=== PATIENT | male | born 1945 | race Caucasian/White ===

== ENCOUNTER 2016-08-29 07:17 | Emergency (ER) | payer OTHER ==
[2016-08-29] MEDS: Acetaminophen TAB* 325 MG PO ONE ×2 (08:19→08:20)
[2016-08-29] MEDS: Ondansetron ODT TAB* 4 MG PO ONE (08:21)
[2016-08-29 08:28] VITALS: BP 130/64
--- NOTE | 2016-08-29 09:49 | RAD ---
INDICATION: Cough, fever. Flu A positive. COMPARISON: August 12, 2016 TECHNIQUE: Dual energy PA and routine lateral views of the chest were obtained. REPORT: Normal elevated lung volumes and mild prominence of the interstitial markings without change. No alveolar consolidation, focal pulmonary lesion, pleural effusion, pneumothorax. The heart, pulmonary vasculature, and mediastinal contours are unremarkable. IMPRESSION: Stigmata of chronic obstructive pulmonary disease. No evidence for pneumonia.
--- NOTE | 2016-08-29 14:59 | UC ---
Edwin Carranza Claudia, scribed for Shannon Rae DO on 08/29/16 at 0845 . General HPI - HPI Summary HPI Summary: 70 year old male presents to the [facility] with general illness. PT admits to sore throat, productive cough(yellow discharge), nasal discharge, N/V, sinus congestion, SALEEM, fever, myalgia. Pt denies dysuria, ear ache, and diarrhea. Pt had has this cough for 4 months and has been on prednisone, and 1 dosage of antibiotics for Sx. He notes that nothing seems to alleviate his cough and his Sx have only gotten progressively worse. Pt had a nnml CXR 6 weeks ago. PMHx of DM1 is noted. - History of Current Complaint Chief Complaint: UCGeneralIllness Stated Complaint: COUGH SORE THROAT Hx Obtained From: Patient Onset/Duration: Gradual Onset, Still Present Associated Signs & Symptoms: Positive: Cough, Fever, Headache, Nausea, Vomiting , Other - sore throat. Negative: Diarrhea, Dysuria - Allergy/Home Medications Allergies/Adverse Reactions: Allergies Allergy/AdvReac Type Severity Reaction Status Date / Time No Known Allergies Allergy Verified 08/29/16 10:35 PMH/Surg Hx/FS Hx/Imm Hx Previously Healthy: Yes Endocrine History Of: Reports: Diabetes - SINCE AGE 10 YRS, INSULIN DEPENDENT - Surgical History Surgical History: Yes Surgery Procedure, Year, and Place: TONSILLECTOMY-1951 - [place]. RIGHT ANKLE SURGERY- 1998- [facility]. BILATERAL CATARACT SURG WITH IOL IMPLANT- 2 YRS AGO- [facility] [place] - Family History Family History: NO FHX of Malignant Hyperthermia - Social History Occupation: Retired Lives: With Family Alcohol Use: Weekly Alcohol Amount: 3 DRINKS/WEEK Substance Use Type: None Smoking Status (MU): Never Smoked Tobacco Have You Smoked in the Last Year: No Review of Systems Constitutional: Fever Skin: Negative Eyes: Negative ENT: Sore Throat, Nasal Discharge, Other - sinus congestion Respiratory: Cough Cardiovascular: Negative Gastrointestinal: Other - N/V Genitourinary: Frequency Motor: Negative Neurovascular: Negative Musculoskeletal: Myalgia Neurological: Headache Psychological: Negative All Other Systems Reviewed And Are Negative: Yes Physical Exam Triage Information Reviewed: Yes Appearance: No Pain Distress, Well-Nourished, Ill-Appearing - mildly Vital Signs: Initial Vital Signs Temp 101 F 08/29/16 07:30 Pulse 82 08/29/16 07:30 Resp 18 08/29/16 07:30 BP 162/71 08/29/16 07:30 Pulse Ox 95 08/29/16 07:30 Vital Signs Reviewed: Yes Eyes: Positive: Conjunctiva Clear. Negative: Conjunctiva Inflamed ENT: Positive: Hearing grossly normal, Pharyngeal erythema, TMs normal. Negative: Tonsillar swelling, Tonsillar exudate, Trismus, Muffled/hoarse voice Dental Exam: Normal Neck exam: Normal Neck: Positive: Supple, Nontender Respiratory: Positive: Lungs clear, Normal breath sounds, No respiratory distress, No accessory muscle use Cardiovascular: Positive: RRR, No Murmur Abdomen Description: Positive: Soft. Negative: Nontender - Tender at LLQ, Distended, Guarding Bowel Sounds: Positive: Present Musculoskeletal Exam: Normal Neurological Exam: Normal Neurological: Positive: Alert, Muscle Tone Normal Psychological Exam: Normal Psychological: Positive: Age Appropriate Behavior Diagnostics - Radiology CXR Xray Interpretation: Positive (See Comments) - STIGMATA FOR COPD. NO EVIDENCE FOR PNEUMONIA. Radiology Interpretation Completed By: Radiologist Re-Evaluation - Re-Evaluation 1 Re-Evaluation Time: 09:55 Comment: CXR and results of flu were discussed with pt. The pt is agreeable to be transfered to [facility] ED for futher testing and observation. Course/Dx - Differential Dx - Multi-Symptom Differential Diagnoses: Metabolic Abnormality, Urinary Tract Infection, Other - pna, influenza, metabolic abn, strep throat Provider Diagnoses: influenza, ketonuria/glycosuria r/o metabolic abnormality Discharge - Discharge Plan Condition: Stable Disposition: TRANS HIGHER LVL OF CARE FAC The documentation as recorded by the Edwin bates Claudia accurately reflects the service I personally performed and the decisions made by , Shannon Rae DO.
== END 2016-08-29 10:00 | disposition short-term general hospital (02) ==
LOC: UCEAST 07:17
DX: J11.1 Influenza due to unidentified influenza virus with other respiratory manifestations (principal); R82.4 Acetonuria; R81 Glycosuria; E11.9 Type 2 diabetes mellitus without complications; Z79.4 Long term (current) use of insulin; Z98.42 Cataract extraction status, left eye; Z98.41 Cataract extraction status, right eye; Z96.1 Presence of intraocular lens
CPT/HCPCS: 71020; 81002; 87502; 87651; 99213; A9270-GY; G0463

== ENCOUNTER 2016-08-29 10:23 | Observation (INO) | payer MEDICARE, OTHER ==
[2016-08-29] MEDS ORDERED: Albuterol/Ipratropium NEB.SOL* Albuterol 2.5 MG/Ipratropium 0.5 MG 3 ML INH ONE (11:17)
[2016-08-29] MEDS ORDERED: Oseltamivir CAP* 75 MG PO ONE (11:17)
[2016-08-29 11:56] LABS: Hematocrit 43 % (42-52); Hemoglobin 14.2 g/dl (14.0-18.0); Mean Corpuscular HGB Conc 33 g/dl (31-36); Mean Corpuscular Hemoglobin 30 pg (27-31); Mean Corpuscular Volume 89 fL (80-94); Mean Platelet Volume 8 um3 (7.4-10.4); Red Blood Count 4.79 10^6/ul (4.0-5.4); Red Cell Distribution Width 13 % (10.5-15)
[2016-08-29] MEDS: NS 0.9% 1000 ML* 3,000 ML IV ONE (12:07)
[2016-08-29 12:09] LABS: BUN/Creatinine Ratio 13.7 (8-20); Calcium 8.9 mg/dL (8.6-10.3); EGFR African American 93.1 (>60); EGFR Non-African American 72.4 (>60); Globulin 2.7 g/dL (2-4); Potassium 4.3 mmol/L (3.5-5.0); Total Bilirubin 0.8 mg/dL (0.2-1.0); Total Protein 6.7 g/dL (6.4-8.9)
[2016-08-29 12:11] LABS: Troponin I 0.01 ng/mL (<0.04)
[2016-08-29 12:22] LABS: C Reactive Protein 3.74 mg/L (< 5.00)
[2016-08-29] MEDS: Acetaminophen TAB* 325 MG PO ONE ×2 (13:37→14:14)
[2016-08-29] MEDS ORDERED: Ondansetron INJ* 2 MG/ML VIAL ONE (13:43)
[2016-08-29] MEDS ORDERED: Acetaminophen SUPP* 650 MG SUPP ONE (13:43)
--- NOTE | 2016-08-29 13:48 | ED ---
Pierre Carranza Matthew, scribed for Edgardo Singh MD on 08/29/16 at 1121 . Influenza-Like Illness - HPI Summary HPI Summary: A 70 y/o male presents to the ED with flu like symptoms since 2 days ago. Associated symptoms include fever, chills, sinus congestion, diffuse body aches , nausea, vomiting, sore throat - since months ago; secondary to coughing, post- nasal drip, and a productive cough for the past 4 months that's progressively worsening and described as yellow in appearance. The patient denies pedal edema , diarrhea, wheezing, SOB, and decreased in weight. The patient took Tylenol and Zofran BLENDER / COOK at [facility]. Patient states that his diabetes is not well controlled right now. He was prescribed prednisone and 1 dosage of Abx, which did not alleviate cough. The patient received his flu shot this year. No PMHx of asthma , HTN, CHF, or HLD. Hx of emphysema. - History of Current Complaint Chief Complaint: EDFluSymptoms Time Seen by Provider: 08/29/16 10:57 Hx Obtained From: Patient Onset/Duration: Gradual Onset, Lasting Days, Still Present Severity: Moderate Associated Signs & Symptoms: F/C - 100, Cough, Sore Throat, Nasal Congestion, Vomiting Related Hx: Possible Flu/Infectious Exposure - Risk Factors Influenza Risk Factors: Age 65 y/o or Older - Allergy/Home Medications Allergies/Adverse Reactions: Allergies Allergy/AdvReac Type Severity Reaction Status Date / Time No Known Allergies Allergy Verified 08/29/16 10:35 PMH/Surg Hx/FS Hx/Imm Hx Endocrine/Hematology History: Reports: Hx Diabetes - SINCE AGE 10 YRS, INSULIN DEPENDENT GI History: Reports: Other GI Disorders - UMBILICAL HERNIA Musculoskeletal History: Reports: Hx Tendonitis - SHOULDER Sensory History: Reports: Hx Cataracts - BILATERAL- HAD LENS IMPLANTS 2013, Hx Contacts or Glasses - GLASSES Denies: Hx Hearing Aid Opthamlomology History: Reports: Hx Cataracts - BILATERAL- HAD LENS IMPLANTS 2013, Hx Contacts or Glasses - GLASSES - Cancer History Hx Chemotherapy: No - Surgical History Surgery Procedure, Year, and Place: TONSILLECTOMY-1951 - [place]. RIGHT ANKLE SURGERY- 1998- [facility]. BILATERAL CATARACT [place]G WITH [place] IMPLANT[place] [facility] [place] Anesthesia Reactions: No Infectious Disease History: No Infectious Disease History: Reports: Hx Tuberculosis Denies: Traveled Outside the [place] in Last 30 Days - Family History Family History: NO FHX of Malignant Hyperthermia. No FHx of Anesthesia reaction - Social History Alcohol Use: Weekly Alcohol Amount: 3 DRINKS/WEEK Substance Use Type: Reports: None Smoking Status (MU): Never Smoked Tobacco Have You Smoked in the Last Year: No Review of Systems Positive: Fever, Chills Eyes: Negative ENT: Other - Post-nasal drip Positive: Sore Throat, Other - sinus congestion . Negative: Ear Ache Cardiovascular: Negative Negative: Chest Pain Positive: Cough. Negative: Shortness Of Breath Positive: Vomiting, Nausea. Negative: Abdominal Pain, Diarrhea Genitourinary: Negative Positive: Myalgia - Diffuse body aches . Negative: Edema - pedal edema Skin: Negative Neurological: Negative Psychological: Normal All Other Systems Reviewed And Are Negative: Yes Physical Exam - Summary Physical Exam Summary: The patient is ill-appearing. The skin is warm and dry and skin color reflects adequate perfusion. HEENT: The head is normocephalic and atraumatic. The pupils are equal and reactive. The conjunctivae are clear and without drainage. Nares are patent and without drainage. Mouth reveals dry mucous membranes with pharyngeal erythema. The external ears are intact. Neck is supple with full range of motion and non-tender. There are no carotid bruits. There is no neck vein distension. Respiratory: Chest is non-tender. The patient has diffuse wheezing and rhonchi Cardiovascular: Heart is regular rate and rhythm. There is no murmur or rub auscultated. There is no peripheral edema and pulses are symmetrical and equal. Abdomen: The abdomen is soft and non-tender. There are normal bowel sounds heard in all four quadrants and there is no organomegaly palpated. Musculoskeletal: There is no back pain noted. Extremities are non-tender with full range of motion. There is good capillary refill. There is no peripheral edema or calf tenderness elicited. Neurological: Patient is alert and oriented to person, place and time. The patient has symmetrical motor strength in all four extremities. Cranial nerves are grossly intact. Deep tendon reflexes are symmetrical and equal in all four extremities. Psychiatric: The patient has an appropriate affect and does not exhibit any anxiety or depression. The patient is able to sit-up on his own. Triage Information Reviewed: Yes Vital Signs On Initial Exam: Initial Vitals Temp Pulse Resp BP Pulse Ox 100 F 81 14 160/84 98 08/29/16 10:29 08/29/16 10:29 08/29/16 10:29 08/29/16 10:29 08/29/16 10:29 Vital Signs Reviewed: Yes Diagnostics - Vital Signs Vital Signs Temp Pulse Resp BP Pulse Ox 08/29/16 10:29 100 F 81 14 160/84 98 - Laboratory Lab Results: Lab Results 08/29/16 08/29/16 08/29/16 Range/Units 11:40 11:40 11:40 WBC 8.0 (3.5-10.8) 10^3/ul RBC 4.79 (4.0-5.4) 10^6/ul Hgb 14.2 (14.0-18.0) g/dl Hct 43 (42-52) % MCV 89 (80-94) fL MCH 30 (27-31) pg MCHC 33 (31-36) g/dl RDW 13 (10.5-15) % Plt Count 157 (150-450) 10^3/ul MPV 8 (7.4-10.4) um3 Neut % (Auto) 88.1 H (38-83) % Lymph % (Auto) 4.2 L (25-47) % Lowndes % (Auto) 6.0 (1-9) % Eos % (Auto) 0 (0-6) % Baso % (Auto) 1.7 (0-2) % Absolute Neuts (auto) 7.1 (1.5-7.7) 10^3/ul Absolute Lymphs (auto) 0.3 L (1.0-4.8) 10^3/ul Absolute Monos (auto) 0.5 (0-0.8) 10^3/ul Absolute Eos (auto) 0 (0-0.6) 10^3/ul Absolute Basos (auto) 0.1 (0-0.2) 10^3/ul Absolute Nucleated RBC 0 10^3/ul Nucleated RBC % 0.1 INR (Anticoag Therapy) 0.96 (0.89-1.11) APTT 30.2 (26.0-36.3) seconds Sodium 132 L (133-145) mmol/L Potassium 4.3 (3.5-5.0) mmol/L Chloride 96 L (101-111) mmol/L Carbon Dioxide 30 (22-32) mmol/L Anion Gap 6 (2-11) mmol/L BUN 14 (6-24) mg/dL Creatinine 1.02 (0.67-1.17) mg/dL Est GFR ( Amer) 93.1 (>60) Est GFR (Non-Af Amer) 72.4 (>60) BUN/Creatinine Ratio 13.7 (8-20) Glucose 222 H (70-100) mg/dL Lactic Acid (0.5-2.0) mmol/L Calcium 8.9 (8.6-10.3) mg/dL Total Bilirubin 0.80 (0.2-1.0) mg/dL AST 21 (13-39) U/L ALT 24 (7-52) U/L Alkaline Phosphatase 87 (34-104) U/L Troponin I 0.01 (<0.04) ng/mL C-Reactive Protein 3.74 (< 5.00) mg/L Total Protein 6.7 (6.4-8.9) g/dL Albumin 4.0 (3.2-5.2) g/dL Globulin 2.7 (2-4) g/dL Albumin/Globulin Ratio 1.5 (1-3) 08/29/16 Range/Units 11:40 WBC (3.5-10.8) 10^3/ul RBC (4.0-5.4) 10^6/ul Hgb (14.0-18.0) g/dl Hct (42-52) % MCV (80-94) fL MCH (27-31) pg MCHC (31-36) g/dl RDW (10.5-15) % Plt Count (150-450) 10^3/ul MPV (7.4-10.4) um3 Neut % (Auto) (38-83) % Lymph % (Auto) (25-47) % Lowndes % (Auto) (1-9) % Eos % (Auto) (0-6) % Baso % (Auto) (0-2) % Absolute Neuts (auto) (1.5-7.7) 10^3/ul Absolute Lymphs (auto) (1.0-4.8) 10^3/ul Absolute Monos (auto) (0-0.8) 10^3/ul Absolute Eos (auto) (0-0.6) 10^3/ul Absolute Basos (auto) (0-0.2) 10^3/ul Absolute Nucleated RBC 10^3/ul Nucleated RBC % INR (Anticoag Therapy) (0.89-1.11) APTT (26.0-36.3) seconds Sodium (133-145) mmol/L Potassium (3.5-5.0) mmol/L Chloride (101-111) mmol/L Carbon Dioxide (22-32) mmol/L Anion Gap (2-11) mmol/L BUN (6-24) mg/dL Creatinine (0.67-1.17) mg/dL Est GFR ( Amer) (>60) Est GFR (Non-Af Amer) (>60) BUN/Creatinine Ratio (8-20) Glucose (70-100) mg/dL Lactic Acid 1.3 (0.5-2.0) mmol/L Calcium (8.6-10.3) mg/dL Total Bilirubin (0.2-1.0) mg/dL AST (13-39) U/L ALT (7-52) U/L Alkaline Phosphatase (34-104) U/L Troponin I (<0.04) ng/mL C-Reactive Protein (< 5.00) mg/L Total Protein (6.4-8.9) g/dL Albumin (3.2-5.2) g/dL Globulin (2-4) g/dL Albumin/Globulin Ratio (1-3) Result Diagrams: 08/29/16 11:40 08/29/16 11:40 Lab Statement: Any lab studies that have been ordered have been reviewed, and results considered in the medical decision making process. Re-Evaluation - Re-Evaluation First Eval Re-Evaluation Time: 13:14 Change: Unchanged Comment: O2 Sat 88% and the patient is not feeling better after treatment. The hospitalist will be consulted for possible admission. Flu Symptom Course/Dx - Course Assessment/Plan: A 70 y/o male presents to the ED from [facility] with flu like symptoms since 2 days ago. Associated symptoms include fever, chills, sinus congestion, diffuse body aches, nausea, vomiting, sore throat - since months ago ; secondary to coughing, post-nasal drip, and a productive cough for the past 4 months that's progressively worsening and described as yellow in appearance. Labs were reviewed. In the ED course, the patient was given 3L of IV fluids, Tamiflu, Tylenol, and Duoneb. Upon re-evaluation the patient did not improve. Discussed the case with Dr. Egan who will admit the patient into his services. - Diagnoses Differential Diagnosis/HQI/PQRI: Positive: Influenza, Pneumonia, Upper Respiratory Infection, Other - dehydration, hyperglycemia, Provider Diagnoses: Influenza - Physician Notifications Discussed Care Of Patient With: Dr. Egan (Hospitalist) at 13:15 -- Notified of patient's history and will evaluate the patient for possible admission. Discharge - Discharge Plan Condition: Stable Disposition: ADMITTED TO [facility] Referrals: Akin Goff MD [Primary Care Provider] - The documentation as recorded by the Pierre bates Matthew accurately reflects the service I personally performed and the decisions made by , Edgardo Singh MD.
[2016-08-29] MEDS ORDERED: NS 0.9% 1000 ML* 1,000 ML IV ONE (13:54)
[2016-08-29] MEDS ORDERED: PROCHLORPERAZINE INJ 5 MG/ML 2 ML VIAL IV PRN (13:54)
[2016-08-29] MEDS ORDERED: Acetaminophen SUPP* 650 MG SUPP PR PRN (13:54)
[2016-08-29] MEDS ORDERED: Dextrose 50% Syringe 50 ML* 25 GM/50 ML SYRINGE IV PUSH PRN (13:54)
[2016-08-29] MEDS ORDERED: Acetaminophen TAB* 325 MG PO PRN (13:54)
[2016-08-29] MEDS ORDERED: NS 0.9% 1000 ML* 1,000 ML IV SCH (14:00)
[2016-08-29] MEDS: Ondansetron INJ* 2 MG/ML VIAL IV PRN (14:12)
[2016-08-29] MEDS ORDERED: Pseudoephedrine TAB* 30 MG PO ONE (17:18)
[2016-08-29] MEDS: Insulin LISPRO* 1 UNITS UNIT SUBCUT SCH (17:37)
--- NOTE | 2016-08-29 20:39 | HP ---
HISTORY AND PHYSICAL: DATE OF ADMISSION: 08/29/16 PRIMARY CARE PROVIDER: Dr. Goff. ATTENDING PHYSICIAN WHILE IN THE HOSPITAL: Dr. Ab Egan * (report dictated by Pepe Arteaga NP). CHIEF COMPLAINT: 1. Myalgias. 2. Fever. 3. Cough. HISTORY OF PRESENT ILLNESS: Mr. Britt is a 70-year-old male patient that comes into the ER today stating that over the last 2 to 3 days, he has had progressive worsening arthralgias, chills, myalgias. He has been feeling nauseous off and on. He has had a sore throat and rhinorrhea. The sore throat and rhinorrhea has been going on for almost a week now. He says he was not feeling better. He was concerned because he thought he was shaking, having chills this morning, so he came in to the [facility] and he was sent here because there was a concern for a flu. He says that he really has not been able to keep much down, because he feels so nauseated. He denies having any chest pain. He said it does hurt when he does cough, but he denies having any shortness of breath or any orthopnea or any nocturnal dyspnea and he does have chest pain with coughing. He was evaluated in the ER, there was concern because it was found that he was flu positive. In addition to this, it was noted that he was having trouble keeping medications down because of the nausea. Because of this, the hospitalist service was asked to evaluate for admission. PAST MEDICAL HISTORY: Significant for: 1. Diabetes. 2. Hypertension. PAST SURGICAL HISTORY: He has had: 1. Cataract extraction. 2. Ankle surgery. MEDICATIONS: The home meds include according to his recall: 1. Humalog sliding scale 110 units subcu t.i.d. before meals. 2. Cozaar 25 mg at bedtime. 3. Lantus 15 units at bedtime. ALLERGIES TO MEDICATIONS: Include no known drug allergies. FAMILY HISTORY: His mother had cancer. His father's history reviewed and noncontributory. SOCIAL HISTORY: He does not smoke, does not drink. He is a retired teacher. Surrogate decision maker is his . REVIEW OF SYSTEMS: There is a documented fever here. He does admit to having chills. There is no significant weight change. There was no double vision. There is no ear discharge. There was rhinorrhea. There was a sore throat. There is no dysuria, no frequency. No loss of consciousness. No pruritus and no skin ulcerations. Review of 14 systems completed, all others negative. PHYSICAL EXAMINATION GENERAL: At this time, Mr. Britt is a 70-year-old male patient. He does not appear to be in any acute distress. He is awake, he is alert, he is oriented x3. VITAL SIGNS: Blood pressure 160/84, last blood pressure was 140/80; his pulse was 77; respirations 18, O2 sat 100%; temperature was 100. HEENT: Head: Atraumatic, normocephalic. Eyes: EOMs intact. Sclerae anicteric. Throat: Oral mucosa appears to be dry. No oropharyngeal erythema. NECK: Supple. LUNGS: Clear to auscultation. He did have some rhonchi in the upper lobe. He had equal diaphragmatic expansion. HEART: Sounds S1, S2. Regular rate and rhythm. No murmurs, rubs, or gallops. ABDOMEN: Soft, flat, nontender. Bowel sounds are present. EXTREMITIES: Pulses were 2+ throughout. He is able to move all 4 extremities with 5/5 strength. NEUROLOGIC: He is awake, he is alert, and is oriented x3. Tongue midline. Network Technical Analyst were equal. He had no gross focal deficits. SKIN: His skin was grossly intact. DIAGNOSTIC STUDIES/LAB DATA: His labs today revealed WBC of 8.0, RBC of 4.79, hemoglobin of 14.2, hematocrit of 43, platelet count of 157. The INR was 0.96, PTT was 30.2. Sodium 132, potassium 4.3, chloride of 96, bicarb 30, BUN 14, creatinine of 1.02, glucose 222, lactate 1.3, calcium 8.9. Total bili 0.8, AST 21, ALT 24, alk phos 87. Troponin 0.01. Albumin of 4. He had a chest x-ray obtained today which revealed stigmata of COPD. No evidence for pneumonia. Old medical records were reviewed. ASSESSMENT AND PLAN: Mr. Britt is a 70-year-old male patient coming in to the ER today with complaints of myalgias, arthralgias in addition to this fever , nausea, vomiting, and sore throat. On evaluation, he was found to have influenza A at [facility], hospitalist service was asked to evaluate for admission. He will be admitted under observation status for: 1. Influenza A. At this point, we will go ahead and put him on Tamiflu. I will go ahead and hydrate him, give him some Zofran and in addition to this, Tylenol for the nausea and the fever respectively and I will continue with supportive care and will follow. 2. Hypertension. Blood pressure is in 140s. I am going to hold his Cozaar in the setting of the acute illness because of the risk of the acute renal injury. We will just continue to monitor. If we need to, we can put him on something like Norvasc. 3. Diabetes. Put him on lispro sliding scale and his Lantus. 4. DVT prophylaxis. I will place him on heparin subcu. 5. Fluids, electrolytes, and nutrition: We will go ahead and hydrate him and and put him on a clear liquid diet, but the goal is a consistent carb diet. 6. Code status: Full code. TIME SPENT: On the admission 60 minutes, greater than half the time was spent face- to-face with the patient obtaining my history and physical, and the other half time was spent going over the plan of care with patient and implementing the plan of care. I did discuss the plan of care with my attending, Dr. Egan; he is in agreement. PEPE ARTEAGA NP CC: Dr. Goff * [id number]/CPS #: [id number] [place]
[2016-08-29] MEDS: Insulin GLARGINE(*) 1 UNITS UNIT SUBCUT SCH (20:48)
[2016-08-29] MEDS: Oseltamivir CAP* 75 MG PO SCH (20:48)
[2016-08-29] MEDS: Heparin VIAL(*) 5000 UNITS/ML VIAL (FIVE THOUSAND) SUBCUT SCH (23:16)
[2016-08-30 03:16] LABS: Urine Bilirubin Negative (Negative); Urine Glucose 2+(150 mg/dL) (Negative); Urine Nitrite Negative (Negative)
[2016-08-30] MEDS: Heparin VIAL(*) 5000 UNITS/ML VIAL (FIVE THOUSAND) SUBCUT SCH ×3 (05:47→21:40)
[2016-08-30 06:27] LABS: Hematocrit 39 % (42-52); Hemoglobin 12.8 g/dl (14.0-18.0); Mean Corpuscular HGB Conc 33 g/dl (31-36); Mean Corpuscular Hemoglobin 30 pg (27-31); Mean Corpuscular Volume 89 fL (80-94); Mean Platelet Volume 8 um3 (7.4-10.4); Red Cell Distribution Width 13 % (10.5-15); White Blood Count 8.2 10^3/ul (3.5-10.8)
[2016-08-30 06:41] LABS: Calcium 8.1 mg/dL (8.6-10.3); EGFR African American 103.6 (>60); EGFR Non-African American 80.6 (>60)
[2016-08-30] MEDS: Oseltamivir CAP* 75 MG PO SCH ×2 (08:52→20:43)
[2016-08-30] MEDS: Insulin LISPRO* 1 UNITS UNIT SUBCUT SCH ×4 (08:52→18:21)
--- NOTE | 2016-08-30 11:26 | PN ---
Subjective Date of Service: 08/30/16 Interval History: Pt is feeling lousy. He continues to have moist cough. He was able to keep down jello this AM. Objective Active Medications: Acetaminophen (Tylenol Supp*) 650 mg WI Q6H PRN PRN Reason: FEVER/PAIN Last Admin: 08/29/16 14:12 Dose: 650 mg Acetaminophen (Tylenol Tab*) 650 mg PO Q4H PRN PRN Reason: FEVER/PAIN Last Admin: 08/29/16 20:48 Dose: 650 mg Dextrose (D50w Syringe 50 Ml*) 12.5 gm IV PUSH .FOR FS < 60 - SS PRN PRN Reason: FS < 60 Heparin Sodium (Porcine) (Heparin Vial(*)) 5,000 units SUBCUT Q8HR [facility] Last Admin: 08/30/16 05:47 Dose: 5,000 units Sodium Chloride (Ns 0.9% 1000 Ml*) 1,000 mls @ 125 mls/hr IV PER RATE [facility] Last Admin: 08/29/16 17:35 Dose: 125 mls/hr Insulin Glargine (Lantus(*)) 15 units SUBCUT BEDTIME [facility] Last Admin: 08/29/16 20:48 Dose: 15 units Insulin Human Lispro (Humalog*) 0 units SUBCUT AC [facility] PRN Reason: Protocol Last Admin: 08/30/16 08:52 Dose: 4 units Ondansetron HCl (Zofran Inj*) 4 mg IV Q6H PRN PRN Reason: NAUSEA Last Admin: 08/29/16 14:12 Dose: 4 mg Oseltamivir Phosphate (Tamiflu Cap*) 75 mg PO BID [facility] Stop: 09/03/16 09:01 Last Admin: 08/30/16 08:52 Dose: 75 mg Prochlorperazine Edisylate (Compazine Inj*) 5 mg IV Q6H PRN PRN Reason: NAUSEA/VOMITING Last Admin: 08/29/16 17:30 Dose: 5 mg Vital Signs 08/29/16 08/29/16 08/29/16 14:00 14:30 15:00 Temperature Pulse Rate 89 84 89 Respiratory Rate Blood Pressure 139/60 136/60 130/58 (mmHg) O2 Sat by Pulse 88 99 97 Oximetry 02/05/17 02/05/17 02/05/17 15:30 15:48 16:53 Temperature 103 F Pulse Rate 87 83 91 Respiratory 20 16 Rate Blood Pressure 124/65 124/65 126/41 (mmHg) O2 Sat by Pulse 96 97 Oximetry 08/29/16 08/29/16 08/29/16 19:49 19:58 20:00 Temperature 102.2 F 100.4 F Pulse Rate 88 91 Respiratory 20 16 16 Rate Blood Pressure 120/49 126/41 (mmHg) O2 Sat by Pulse 99 97 Oximetry 08/29/16 08/29/16 08/29/16 20:21 20:30 23:19 Temperature 102.2 F 100.7 F Pulse Rate Respiratory 14 Rate Blood Pressure (mmHg) O2 Sat by Pulse Oximetry 08/30/16 08/30/16 08/30/16 00:38 02:24 03:16 Temperature 99.3 F 99.4 F Pulse Rate 88 74 Respiratory 16 14 Rate Blood Pressure 145/64 132/66 (mmHg) O2 Sat by Pulse 97 97 Oximetry 08/30/16 08/30/16 08/30/16 07:41 08:00 08:53 Temperature 99.1 F Pulse Rate 70 Respiratory Rate Blood Pressure 116/40 (mmHg) O2 Sat by Pulse 93 93 91 Oximetry Oxygen Devices in Use Now: Nasal Cannula - 91%-3L Appearance: Middle aged male sitting up in bed, NAD Eyes: No Scleral Icterus Ears/Nose/Mouth/Throat: Mucous Membranes Moist Respiratory: Symmetrical Chest Expansion and Respiratory Effort, - - + deep breath leads to moist cough, coarse breath sounds throughout Cardiovascular: NL Sounds; No Murmurs; No JVD, RRR, No Edema Abdominal: NL Sounds; No Tenderness; No Distention Extremities: No Clubbing, Cyanosis Skin: No Rash or Ulcers, No Nodules or Sclerosis Neurological: Alert and Oriented x 3 Result Diagrams: 08/30/16 05:51 08/30/16 05:51 Additional Lab and Data: Lab Results 08/29/16 08/29/16 08/29/16 Range/Units 11:40 11:40 11:40 WBC 8.0 (3.5-10.8) 10^3/ul RBC 4.79 (4.0-5.4) 10^6/ul Hgb 14.2 (14.0-18.0) g/dl Hct 43 (42-52) % MCV 89 (80-94) fL MCH 30 (27-31) pg MCHC 33 (31-36) g/dl RDW 13 (10.5-15) % Plt Count 157 (150-450) 10^3/ul MPV 8 (7.4-10.4) um3 Neut % (Auto) 88.1 H (38-83) % Lymph % (Auto) 4.2 L (25-47) % Haines % (Auto) 6.0 (1-9) % Eos % (Auto) 0 (0-6) % Baso % (Auto) 1.7 (0-2) % Absolute Neuts (auto) 7.1 (1.5-7.7) 10^3/ul Absolute Lymphs (auto) 0.3 L (1.0-4.8) 10^3/ul Absolute Monos (auto) 0.5 (0-0.8) 10^3/ul Absolute Eos (auto) 0 (0-0.6) 10^3/ul Absolute Basos (auto) 0.1 (0-0.2) 10^3/ul Absolute Nucleated RBC 0 10^3/ul Nucleated RBC % 0.1 INR (Anticoag Therapy) 0.96 (0.89-1.11) APTT 30.2 (26.0-36.3) seconds Sodium 132 L (133-145) mmol/L Potassium 4.3 (3.5-5.0) mmol/L Chloride 96 L (101-111) mmol/L Carbon Dioxide 30 (22-32) mmol/L Anion Gap 6 (2-11) mmol/L BUN 14 (6-24) mg/dL Creatinine 1.02 (0.67-1.17) mg/dL Est GFR ( Amer) 93.1 (>60) Est GFR (Non-Af Amer) 72.4 (>60) BUN/Creatinine Ratio 13.7 (8-20) Glucose 222 H (70-100) mg/dL Lactic Acid (0.5-2.0) mmol/L Calcium 8.9 (8.6-10.3) mg/dL Total Bilirubin 0.80 (0.2-1.0) mg/dL AST 21 (13-39) U/L ALT 24 (7-52) U/L Alkaline Phosphatase 87 (34-104) U/L Troponin I 0.01 (<0.04) ng/mL C-Reactive Protein 3.74 (< 5.00) mg/L Total Protein 6.7 (6.4-8.9) g/dL Albumin 4.0 (3.2-5.2) g/dL Globulin 2.7 (2-4) g/dL Albumin/Globulin Ratio 1.5 (1-3) 08/29/16 Range/Units 11:40 WBC (3.5-10.8) 10^3/ul RBC (4.0-5.4) 10^6/ul Hgb (14.0-18.0) g/dl Hct (42-52) % MCV (80-94) fL MCH (27-31) pg MCHC (31-36) g/dl RDW (10.5-15) % Plt Count (150-450) 10^3/ul MPV (7.4-10.4) um3 Neut % (Auto) (38-83) % Lymph % (Auto) (25-47) % Haines % (Auto) (1-9) % Eos % (Auto) (0-6) % Baso % (Auto) (0-2) % Absolute Neuts (auto) (1.5-7.7) 10^3/ul Absolute Lymphs (auto) (1.0-4.8) 10^3/ul Absolute Monos (auto) (0-0.8) 10^3/ul Absolute Eos (auto) (0-0.6) 10^3/ul Absolute Basos (auto) (0-0.2) 10^3/ul Absolute Nucleated RBC 10^3/ul Nucleated RBC % INR (Anticoag Therapy) (0.89-1.11) APTT (26.0-36.3) seconds Sodium (133-145) mmol/L Potassium (3.5-5.0) mmol/L Chloride (101-111) mmol/L Carbon Dioxide (22-32) mmol/L Anion Gap (2-11) mmol/L BUN (6-24) mg/dL Creatinine (0.67-1.17) mg/dL Est GFR ( Amer) (>60) Est GFR (Non-Af Amer) (>60) BUN/Creatinine Ratio (8-20) Glucose (70-100) mg/dL Lactic Acid 1.3 (0.5-2.0) mmol/L Calcium (8.6-10.3) mg/dL Total Bilirubin (0.2-1.0) mg/dL AST (13-39) U/L ALT (7-52) U/L Alkaline Phosphatase (34-104) U/L Troponin I (<0.04) ng/mL C-Reactive Protein (< 5.00) mg/L Total Protein (6.4-8.9) g/dL Albumin (3.2-5.2) g/dL Globulin (2-4) g/dL Albumin/Globulin Ratio (1-3) Assess/Plan/Problems-Billing Mr Britt is a 70 yo M with a h/o type I DM and hypothyroidism who presented to the ER with c/o myalgias, fever, cough and vomiting and was found to be positive for influenza A. - Patient Problems (1) Influenza A Current Visit: Yes Status: Acute Code(s): J10.1 - FLU DUE TO OTH IDENT INFLUENZA VIRUS W OTH RESP MANIFEST SNOMED Code(s): 383205548 Comment: Continue tamiflu. Currently he is on supplemental O2. Will recheck his sats. If stable off O2 will plan on discharging him home to finish recovering from the flu but if he is still requiring supplemental O2 will keep him hospitalized overnight again. (2) Nausea & vomiting Current Visit: Yes Status: Acute Code(s): R11.2 - NAUSEA WITH VOMITING, UNSPECIFIED SNOMED Code(s): 58251928 Comment: Likely secondary to the flu. He has managed to keep down some jello and water today. If he goes home today will plan on sending him home with prakash SHAFER. (3) Type I diabetes mellitus Current Visit: Yes Status: Acute Comment: Sugars have been moderately elevated on his home regimen. Will add A1c to labs drawn this AM. If his A1c is elevated will adjust his medication regimen-if under good control will continue the same regimen and it is likely that the elevation is secondary to his acute illness. (4) Hypothyroidism Current Visit: Yes Status: Acute Code(s): E03.9 - HYPOTHYROIDISM, UNSPECIFIED SNOMED Code(s): 80108782 Comment: Continue current dose of synthroid. He follows with Dr. Melendez. (5) DVT prophylaxis Current Visit: Yes Status: Acute Code(s): ZOL5405 - SNOMED Code(s): 844744744 Comment: SQ heparin (6) Full code status Current Visit: Yes Status: Acute Code(s): Z78.9 - OTHER SPECIFIED HEALTH STATUS SNOMED Code(s): 809785316
[2016-08-30] MEDS: Ondansetron INJ* 2 MG/ML VIAL IV PRN (19:49)
[2016-08-30] MEDS: Insulin GLARGINE(*) 1 UNITS UNIT SUBCUT SCH (20:44)
[2016-08-30] MEDS: guaiFENesin ER TAB 600 MG PO SCH (21:40)
[2016-08-31] MEDS: Heparin VIAL(*) 5000 UNITS/ML VIAL (FIVE THOUSAND) SUBCUT SCH (05:50)
[2016-08-31 06:18] VITALS: BP 107/47
[2016-08-31] MEDS: Oseltamivir CAP* 75 MG PO SCH (08:35)
[2016-08-31] MEDS: Insulin LISPRO* 1 UNITS UNIT SUBCUT SCH (08:35)
[2016-08-31] MEDS: guaiFENesin ER TAB 600 MG PO SCH (08:40)
--- NOTE | 2016-08-31 10:03 | PN ---
Subjective Date of Service: 08/31/16 Interval History: Pt is feeling better today than yesterday. He still is coughing though this has been a chronic issue for the last several months. He is anxious to go home. Objective Active Medications: Acetaminophen (Tylenol Supp*) 650 mg ID Q6H PRN PRN Reason: FEVER/PAIN Last Admin: 08/29/16 14:12 Dose: 650 mg Acetaminophen (Tylenol Tab*) 650 mg PO Q4H PRN PRN Reason: FEVER/PAIN Last Admin: 08/29/16 20:48 Dose: 650 mg Dextrose (D50w Syringe 50 Ml*) 12.5 gm IV PUSH .FOR FS < 60 - SS PRN PRN Reason: FS < 60 Guaifenesin (Mucinex*) 1,200 mg PO BID [facility] Last Admin: 08/31/16 08:40 Dose: 1,200 mg Heparin Sodium (Porcine) (Heparin Vial(*)) 5,000 units SUBCUT Q8HR [facility] Last Admin: 08/31/16 05:50 Dose: 5,000 units Sodium Chloride (Ns 0.9% 1000 Ml*) 1,000 mls @ 125 mls/hr IV PER RATE [facility] Last Admin: 08/29/16 17:35 Dose: 125 mls/hr Insulin Glargine (Lantus(*)) 15 units SUBCUT BEDTIME [facility] Last Admin: 08/30/16 20:44 Dose: 15 units Insulin Human Lispro (Humalog*) 0 units SUBCUT AC [facility] PRN Reason: Protocol Last Admin: 08/31/16 08:35 Dose: 2 units Ondansetron HCl (Zofran Inj*) 4 mg IV Q6H PRN PRN Reason: NAUSEA Last Admin: 08/30/16 19:49 Dose: 4 mg Oseltamivir Phosphate (Tamiflu Cap*) 75 mg PO BID [facility] Stop: 09/03/16 09:01 Last Admin: 08/31/16 08:35 Dose: 75 mg Prochlorperazine Edisylate (Compazine Inj*) 5 mg IV Q6H PRN PRN Reason: NAUSEA/VOMITING Last Admin: 08/29/16 17:30 Dose: 5 mg Vital Signs 08/30/16 08/30/16 08/30/16 16:42 17:31 18:23 Temperature 99.9 F Pulse Rate 65 Respiratory 20 Rate Blood Pressure 148/62 (mmHg) O2 Sat by Pulse 98 96 96 Oximetry 08/30/16 08/30/16 08/30/16 19:59 20:00 22:16 Temperature 98.0 F Pulse Rate 64 68 Respiratory 20 18 Rate Blood Pressure 130/57 (mmHg) O2 Sat by Pulse 96 93 93 Oximetry 08/31/16 08/31/16 08/31/16 00:40 02:16 05:05 Temperature 99.8 F 98.6 F Pulse Rate 71 62 Respiratory 16 18 Rate Blood Pressure 144/49 107/47 (mmHg) O2 Sat by Pulse 93 89 97 Oximetry 08/31/16 05:55 Temperature Pulse Rate 67 Respiratory Rate Blood Pressure (mmHg) O2 Sat by Pulse 97 Oximetry Oxygen Devices in Use Now: None - 97% Appearance: Middle aged male sitting up in bed, NAD Eyes: No Scleral Icterus Ears/Nose/Mouth/Throat: Mucous Membranes Moist Respiratory: Symmetrical Chest Expansion and Respiratory Effort, Clear to Auscultation - mildly coarse breath sounds L base Cardiovascular: NL Sounds; No Murmurs; No JVD, RRR, No Edema Abdominal: NL Sounds; No Tenderness; No Distention Extremities: No Clubbing, Cyanosis Skin: No Rash or Ulcers, No Nodules or Sclerosis Neurological: Alert and Oriented x 3 Result Diagrams: 08/30/16 05:51 08/30/16 05:51 Additional Lab and Data: Lab Results 08/29/16 08/29/16 08/29/16 Range/Units 11:40 11:40 11:40 WBC 8.0 (3.5-10.8) 10^3/ul RBC 4.79 (4.0-5.4) 10^6/ul Hgb 14.2 (14.0-18.0) g/dl Hct 43 (42-52) % MCV 89 (80-94) fL MCH 30 (27-31) pg MCHC 33 (31-36) g/dl RDW 13 (10.5-15) % Plt Count 157 (150-450) 10^3/ul MPV 8 (7.4-10.4) um3 Neut % (Auto) 88.1 H (38-83) % Lymph % (Auto) 4.2 L (25-47) % Todd % (Auto) 6.0 (1-9) % Eos % (Auto) 0 (0-6) % Baso % (Auto) 1.7 (0-2) % Absolute Neuts (auto) 7.1 (1.5-7.7) 10^3/ul Absolute Lymphs (auto) 0.3 L (1.0-4.8) 10^3/ul Absolute Monos (auto) 0.5 (0-0.8) 10^3/ul Absolute Eos (auto) 0 (0-0.6) 10^3/ul Absolute Basos (auto) 0.1 (0-0.2) 10^3/ul Absolute Nucleated RBC 0 10^3/ul Nucleated RBC % 0.1 INR (Anticoag Therapy) 0.96 (0.89-1.11) APTT 30.2 (26.0-36.3) seconds Sodium 132 L (133-145) mmol/L Potassium 4.3 (3.5-5.0) mmol/L Chloride 96 L (101-111) mmol/L Carbon Dioxide 30 (22-32) mmol/L Anion Gap 6 (2-11) mmol/L BUN 14 (6-24) mg/dL Creatinine 1.02 (0.67-1.17) mg/dL Est GFR ( Amer) 93.1 (>60) Est GFR (Non-Af Amer) 72.4 (>60) BUN/Creatinine Ratio 13.7 (8-20) Glucose 222 H (70-100) mg/dL Lactic Acid (0.5-2.0) mmol/L Calcium 8.9 (8.6-10.3) mg/dL Total Bilirubin 0.80 (0.2-1.0) mg/dL AST 21 (13-39) U/L ALT 24 (7-52) U/L Alkaline Phosphatase 87 (34-104) U/L Troponin I 0.01 (<0.04) ng/mL C-Reactive Protein 3.74 (< 5.00) mg/L Total Protein 6.7 (6.4-8.9) g/dL Albumin 4.0 (3.2-5.2) g/dL Globulin 2.7 (2-4) g/dL Albumin/Globulin Ratio 1.5 (1-3) 08/29/16 Range/Units 11:40 WBC (3.5-10.8) 10^3/ul RBC (4.0-5.4) 10^6/ul Hgb (14.0-18.0) g/dl Hct (42-52) % MCV (80-94) fL MCH (27-31) pg MCHC (31-36) g/dl RDW (10.5-15) % Plt Count (150-450) 10^3/ul MPV (7.4-10.4) um3 Neut % (Auto) (38-83) % Lymph % (Auto) (25-47) % Todd % (Auto) (1-9) % Eos % (Auto) (0-6) % Baso % (Auto) (0-2) % Absolute Neuts (auto) (1.5-7.7) 10^3/ul Absolute Lymphs (auto) (1.0-4.8) 10^3/ul Absolute Monos (auto) (0-0.8) 10^3/ul Absolute Eos (auto) (0-0.6) 10^3/ul Absolute Basos (auto) (0-0.2) 10^3/ul Absolute Nucleated RBC 10^3/ul Nucleated RBC % INR (Anticoag Therapy) (0.89-1.11) APTT (26.0-36.3) seconds Sodium (133-145) mmol/L Potassium (3.5-5.0) mmol/L Chloride (101-111) mmol/L Carbon Dioxide (22-32) mmol/L Anion Gap (2-11) mmol/L BUN (6-24) mg/dL Creatinine (0.67-1.17) mg/dL Est GFR ( Amer) (>60) Est GFR (Non-Af Amer) (>60) BUN/Creatinine Ratio (8-20) Glucose (70-100) mg/dL Lactic Acid 1.3 (0.5-2.0) mmol/L Calcium (8.6-10.3) mg/dL Total Bilirubin (0.2-1.0) mg/dL AST (13-39) U/L ALT (7-52) U/L Alkaline Phosphatase (34-104) U/L Troponin I (<0.04) ng/mL C-Reactive Protein (< 5.00) mg/L Total Protein (6.4-8.9) g/dL Albumin (3.2-5.2) g/dL Globulin (2-4) g/dL Albumin/Globulin Ratio (1-3) Assess/Plan/Problems-Billing Mr Britt is a 70 yo M with a h/o type I DM and hypothyroidism who presented to the ER with c/o myalgias, fever, cough and vomiting and was found to be positive for influenza A. - Patient Problems (1) Influenza A Current Visit: Yes Status: Acute Code(s): J10.1 - FLU DUE TO OTH IDENT INFLUENZA VIRUS W OTH RESP MANIFEST SNOMED Code(s): 661023732 Comment: Continue tamiflu to complete a 5 day course of therapy. He is no longer requiring supplemental O2. He is ready for d/c home. (2) Nausea & vomiting Current Visit: Yes Status: Acute Code(s): R11.2 - NAUSEA WITH VOMITING, UNSPECIFIED SNOMED Code(s): 71776129 Comment: Resolved. Asking for a regular diet this AM. (3) Type I diabetes mellitus Current Visit: Yes Status: Acute Comment: Sugars are under better control. He will continue with his usual home insulin regimen at home. His A1c is 6.6%- he states better than what it has been. (4) Hypothyroidism Current Visit: Yes Status: Acute Code(s): E03.9 - HYPOTHYROIDISM, UNSPECIFIED SNOMED Code(s): 96627015 Comment: Continue current dose of synthroid. He follows with Dr. Melendez. (5) DVT prophylaxis Current Visit: Yes Status: Acute Code(s): WHK3641 - SNOMED Code(s): 333144469 Comment: SQ heparin (6) Full code status Current Visit: Yes Status: Acute Code(s): Z78.9 - OTHER SPECIFIED HEALTH STATUS SNOMED Code(s): 208224131 Status and Disposition: d/c home
--- NOTE | 2016-08-31 12:45 | DS ---
DISCHARGE SUMMARY: DATE OF ADMISSION: 08/29/16 DATE OF DISCHARGE: 08/31/16 PRIMARY CARE PROVIDER: Dr. Goff. BOBBIN INSPECTOR: Dr. Melendez. PRINCIPAL DIAGNOSIS: Influenza. SECONDARY DIAGNOSES: 1. Type 1 diabetes. 2. Hypothyroidism. 3. Chronic cough of unclear etiology. DISCHARGE MEDICATIONS: 1. Lantus 15 units subcutaneous q.h.s. 2. Humalog 1 to 10 units subcutaneous t.i.d. a.c. based on home regimen. 3. Losartan 25 mg p.o. q.h.s. 4. Tamiflu 75 mg p.o. b.i.d. x6 doses. HOSPITAL COURSE: Mr. Britt is a 70-year-old male who presented to the emergency room on 08/29/16 with complaints of myalgias, fever, and cough. The patient was found to be positive for influenza. In addition, the patient was having significant nausea and vomiting and was unable to keep medications down, therefore he was admitted to the hospital. The patient had improved by 08/30/16 ; however, he continued to require supplemental oxygen with saturations in the 80s on room air. The decision was made to keep the patient overnight one more night. By 08/31/16, the patient was saturating in the mid to high 90s on room air. The patient will continue on Tamiflu to complete a course of 5 days. He describes not only having a cough with a flu, but describes a cough that has been chronic over the last several months. The patient is very frustrated by this. He finds that he is also not able to use his CPAP with the cough. I have recommended that he contact Dr. Dotson's office once he has recovered from the flu to discuss his chronic cough and workup for this. In terms of the patient's type 1 diabetes, his sugars have been moderately elevated early on during this hospitalization; however, improved towards the end of discharge. Given the elevated blood sugars, an A1c was obtained and found to be slightly elevated at 6.6%. The patient states that this is better than what he had been previously. He will continue on his usual insulin regimen at home and follow up with Dr. Melendez as needed. FOLLOWUP CONCERNS: The patient is being discharged home today, 08/31/16. He is to follow up with Dr. Goff in the next 4 to 7 days. He will be contacted by Dr. Goff's office for an appointment date and time. Additionally, he has been referred to Dr. Dotson for the next 2 to 4 weeks to discuss his chronic cough. CONDITION ON DISCHARGE: Stable. ACTIVITY LEVEL: As tolerated. DIET: Diabetic. TIME SPENT: 25 minutes were spent discharging this patient. CC: Dr. Goff; Dr. Melendez* [id number]/[facility] #: [id number] MTDD
== END 2016-08-31 10:30 | disposition home or self-care (01) ==
LOC: ED 10:23 → MED 13:51
PROVIDERS: ADMIT Internal Medicine; ATTEND Hospitalist
DX: J09.X2 Influenza due to identified novel influenza A virus with other respiratory manifestations (principal); E10.9 Type 1 diabetes mellitus without complications; E03.9 Hypothyroidism, unspecified; R05 Cough; Z79.4 Long term (current) use of insulin; I10 Essential (primary) hypertension
CPT/HCPCS: 36415; 71020; 80048; 80053; 81002; 81003; 83036; 83605; 84484; 85025; 85610; 85730; 86140; 87040; 87502; 87651; 94640; 94760; 96374; 99213; 99284; A9270-GY; G0378; G0463; J0780; J1644; J2405

== ENCOUNTER 2019-07-07 13:04 | Emergency (ER) | payer BC, OTHER ==
[2019-07-07 13:16] VITALS: BP 125/66
--- NOTE | 2019-07-07 13:31 | UC ---
[facility] Dental HPI - HPI Summary HPI Summary: patient comes to urgent care with CC of pain in right jew---pain seem to radiate to right ear,right mandible--patient had a "viral infection" in the past week and now conties with subjective fever---pain to palpation right temporal area---in general pat describes pain and something that is more more internal - History of Current Complaint Chief Complaint: UCGeneralIllness Stated Complaint: DENTAL PAIN Time Seen by Provider: 07/07/19 13:18 Hx Obtained From: Patient Onset/Duration: Lasting Days, Still Present Pain Intensity: 2 Pain Scale Used: 0-10 Numeric Aggravating Factor(s): Nothing Alleviating Factor(s): Nothing - Allergies/Home Medications Allergies/Adverse Reactions: Allergies Allergy/AdvReac Type Severity Reaction Status Date / Time No Known Allergies Allergy Verified 06/09/18 13:03 PMH/Surg Hx/FS Hx/Imm Hx Previously Healthy: No Endocrine History: Diabetes - Surgical History Surgical History: Yes Surgery Procedure, Year, and Place: TONSILLECTOMY-1951 - [place]. RIGHT ANKLE SURGERY- 1998- [facility]. BILATERAL CATARACT SURG WITH IOL IMPLANT- 2 YRS AGO- [facility] [place] - Family History Known Family History: Positive: None Family History: NO FHX of Malignant Hyperthermia. No FHx of Anesthesia reaction - Social History Occupation: Retired Lives: With Family Alcohol Use: Weekly Alcohol Amount: 3 DRINKS/WEEK Substance Use Type: None Smoking Status (MU): Never Smoked Tobacco Have You Smoked in the Last Year: No - Immunization History Most Recent Influenza Vaccination: 03/2016 Most Recent Tetanus Shot: unk Most Recent Pneumonia Vaccination: has had it Review of Systems All Other Systems Reviewed And Are Negative: Yes Constitutional: Positive: Fever Skin: Positive: Negative Eyes: Positive: Negative ENT: Positive: Other - pain in right side of face at an internal locust- Respiratory: Positive: Negative Cardiovascular: Positive: Negative Gastrointestinal: Positive: Negative Genitourinary: Positive: Negative Motor: Positive: Negative Neurovascular: Positive: Negative Musculoskeletal: Positive: Negative Neurological: Positive: Negative Psychological: Positive: Negative Is Patient Immunocompromised?: No Physical Exam Triage Information Reviewed: Yes Appearance: Well-Appearing, No Pain Distress, Well-Nourished Vital Signs: Initial Vital Signs Temp 99.8 F 07/07/19 13:10 Pulse 60 07/07/19 13:10 Resp 16 07/07/19 13:10 BP 125/66 07/07/19 13:10 Pulse Ox 99 07/07/19 13:10 Vital Signs Reviewed: Yes Eye Exam: Normal Eyes: Positive: Conjunctiva Clear ENT Exam: Normal ENT: Positive: Normal ENT inspection, Hearing grossly normal, Pharynx normal, TMs normal - after ear irragation, Uvula midline. Negative: Nasal congestion, Nasal drainage, Tonsillar swelling, Tonsillar exudate, Trismus, Muffled voice, Hoarse voice, Dental tenderness, Sinus tenderness Dental Exam: Normal Neck exam: Normal Neck: Positive: Supple, Nontender Respiratory Exam: Normal Respiratory: Positive: Chest non-tender, Lungs clear, Normal breath sounds, No respiratory distress, No accessory muscle use Cardiovascular Exam: Normal Cardiovascular: Positive: RRR, No Murmur, Pulses Normal, Brisk Capillary Refill Musculoskeletal Exam: Normal Musculoskeletal: Positive: Strength Intact, ROM Intact, No Edema Neurological Exam: Normal Neurological: Positive: Alert, Muscle Tone Normal Psychological Exam: Normal Skin Exam: Normal Dental Complaint Course/Dx - Course Course Of Treatment: reviewed case with Dr. Sabillon--will send patient to hospital for lab testing to confirm a diagnosis - Differential Dx/Diagnosis Provider Diagnosis: Temporal arteritis syndrome Discharge ED - Sign-Out/Discharge Documenting (check all that apply): Patient Departure All imaging exams completed and their final reports reviewed: No Studies - Discharge Plan Condition: Stable Disposition: HOME-RECOMMEND TO ED Patient Education Materials: Temporal Arteritis (ED) Referrals: Akin Goff MD [Primary Care Provider] - Additional Instructions: Please go directly to the emergency department for evaluation of Potential temporal arthritis - Billing Disposition and Condition Condition: STABLE Disposition: Home-Recommend to ED
== END 2019-07-07 14:10 | disposition home health service (06) ==
LOC: UCEAST 13:04
DX: I77.6 Arteritis, unspecified (principal); K08.89 Other specified disorders of teeth and supporting structures; E11.9 Type 2 diabetes mellitus without complications
CPT/HCPCS: 99213; G0463